=== PATIENT | male | born 1955 | race African-American/Black ===

== ENCOUNTER 2019-04-06 15:02 | Outpatient (CLI) | payer OTHER ==
[2019-04-06 17:46] LABS: ALBUMIN 3.6 g/dL (3.4-4.8); CALCIUM 8.9 mg/dL (8.4-11.0); CREATININE 0.93 mg/dL (0.55-1.30); TOTAL BILIRUBIN 0.2 mg/dL (0.0-1.0)
== END 2019-04-06 19:21 | disposition home or self-care (01) ==
LOC: SLB 15:02
PROVIDERS: ATTEND Psychiatry & Neurology Psychiatry
DX: F29 Unspecified psychosis not due to a substance or known physiological condition (principal)
CPT/HCPCS: 36415; 80053; 80061; 83036; 87081